=== PATIENT | male | born 1975 | race Caucasian/White ===

== ENCOUNTER → 2021-05-11 12:23 | Outpatient (BNVA) | payer SELFPAY | PROVIDERS: Visit Provider Family Medicine | DX: N52.9 Male erectile dysfunction, unspecified (principal); N45.1 Epididymitis; G56.91 Unspecified mononeuropathy of right upper limb; R63.4 Abnormal weight loss; Z76.89 Persons encountering health services in other specified circumstances | CPT/HCPCS: 80053; 80061; 81000; 83036; 84443; 85025 ==

== ENCOUNTER → 2021-10-14 14:50 | Outpatient (BNVA) | payer OTHER, SELFPAY | PROVIDERS: PCP Family Medicine; Visit Provider Nurse Practitioner Family | DX: Z20.822 Contact with and (suspected) exposure to COVID-19 (principal); R68.89 Other general symptoms and signs | CPT/HCPCS: 87400; 87635 ==